=== PATIENT | male | born 1975 | race Caucasian/White ===

== ENCOUNTER 2021-11-01 00:11 | Emergency (ER) | payer OTHER ==
[2021-11-01 01:11] LABS: BUN/CREATININE RATIO 28 (0-10)
[2021-11-01 02:57] LABS: HEMOGLOBIN 12.7 gm/dl (14.0-17.5); RED BLOOD COUNT 4.54 M/UL (4.20-5.50); WHITE BLOOD COUNT 5.7 K/UL (4.5-11.0)
[2021-11-01] MEDS ORDERED: VISTARIL25 MG PO (08:17)
== END 2021-11-01 05:21 | disposition left against medical advice (07) ==
LOC: ER1 00:11
PROVIDERS: Family Medicine
DX: R11.2 Nausea with vomiting, unspecified (principal); R07.9 Chest pain, unspecified; Z71.6 Tobacco abuse counseling; F17.210 Nicotine dependence, cigarettes, uncomplicated; I10 Essential (primary) hypertension
CPT/HCPCS: 71045; 80053; 82550; 82553; 84484; 85025; 93005; 99281

== ENCOUNTER 2021-11-01 06:00 | Emergency (ER) | payer OTHER ==
[2021-11-01] MEDS ORDERED: VISTARIL25 MG PO (08:17)
== END 2021-11-01 08:27 | disposition home or self-care (01) ==
LOC: ER1 06:00
DX: F41.9 Anxiety disorder, unspecified (principal); G89.11 Acute pain due to trauma; M25.512 Pain in left shoulder; I10 Essential (primary) hypertension
CPT/HCPCS: 73030; 93005; 96374; 99283; J1885; Q0177